=== PATIENT | male | born 1950 | race Caucasian/White ===

== ENCOUNTER 2019-12-02 10:02 | Emergency (ER) | payer MEDICARE, OTHER, SELFPAY ==
[2019-12-02 10:10] VITALS: BMI 19.8
[2019-12-02 10:14] VITALS: BP 116/99; PULSE 102; RESP 18; O2SAT 97
[2019-12-02 11:16] LABS: Basophils % 0.2 %; Eosinophils % 0.1 %; Hematocrit 45.9 % (42.0-52.0); Hemoglobin 15.1 g/dL (11.7-16.6); Lymphocytes # 2.3 10^3/uL (0.8-4.8); Mean Corpuscular HGB Conc 32.9 g/dL (30.0-36.0); Mean Corpuscular Hemoglobin 29.9 pg (28.0-34.0); Mean Corpuscular Volume 90.9 fL (80-94); Mean Platelet Volume 8.4 fL (7.4-10.4); Monocytes # 0.7 10^3/uL (0.2-0.9); Monocytes % 7.5 %; Neutrophils # 6.37 10^3/uL (1.8-7.7); Neutrophils % 67.8 %; Nucleated Red Blood Cells % 0 %; Platelet Count 322 10^3/cmm (130-400); Red Blood Count 5.05 10^6/uL (4.1-5.3); Red Cell Distribution Width 12.5 % (12.1-15.1); White Blood Count 9.4 10^3/uL (4.0-10.0)
[2019-12-02 11:31] LABS: Alanine Aminotransferase 12 U/L (0-41); Albumin Level 3.7 g/dL (3.5-5.2); Alkaline Phosphatase 66 IU/L (40-130); Anion Gap 14.5 (5-19); Aspartate Amino Transferase 17 U/L (0-40); Blood Urea Nitrogen 25 mg/dL (8-23); Calcium 8.4 mg/dL (8.5-10.5); Carbon Dioxide 23 mmol/L (22-29); Chloride 96 mmol/L (98-107); Creatinine Clr Calc Pharmacy 72.8049; Globulin 3.4 g/dL (1.3-4.6); Glomerular Filtration Rate 84.2 mL/min (90-130); Glucose 105 mg/dL (65-115); Lipase 42 U/L (13-60); Osmolality Calculated 267 mOsm/kg (285-295); Potassium 3.5 mmol/L (3.5-5.1); Sodium 130 mmol/L (136-145); Total Bilirubin 0.9 mg/dL (0.15-1.2); Total Protein 7.1 g/dL (6.6-8.7)
[2019-12-02] MEDS: ondansetron 2 mg/ML SDV 2 mL 4 MG IVP (11:31)
[2019-12-02] MEDS: ketorolac 30 mg/mL INJ 15 MG IVP (11:31)
--- NOTE | 2019-12-02 11:31 | ED_ITS ---
HPI - Abdominal Pain General: Chief Complaint: Abdominal Pain Stated Complaint: stomach cramps/can't eat or sleep Time Seen by Provider: 12/02/19 10:53 History of Present Illness: HPI narrative: This patient is a 69-year-old male presenting today with vomiting and diarrhea. He has chronic back pain due to an injury in 2009. He had been on methadone and then switch to oxycodone. He had been going to the pain management clinic with Dr. Pendleton. He said he got kicked out because he tested dirty . He said he does not like being on pain medicine and wanted to get off of it anyway. He went to an inpatient rehab center in [facility] where he was treated with methadone during the withdrawal. He got home a week ago Sunday and had a couple of days of feeling okay. For the last 6 days however he has had anxiety, muscle spasms, abdominal pain, vomiting, diarrhea. He has not been able to sleep. He is extremely anxious right now. His primary care doctor is Dr. More and he spoke to the nurse practitioner at Dr. More's office. She recommended that he come to the ER to see if we could help manage his symptoms. He does have some other medical history including history of a PE with chronic anticoagulation. He does not want to go back on methadone or any other narcotic. He wants to get his medical marijuana card and does admit that he used a little bit of marijuana last night to try to manage his symptoms. He says it does help but only lasts about an hour and a half. MD elicited complaint: abdominal pain Onset (ago): day(s) (6) Pain Consistency: constant Location: Diffuse Severity: severe Quality: cramping Radiation: none Migration to: no migration Exacerbating factors: eating Relieving factors: nothing Context: other (Possibly withdrawing from narcotics) Associated Symptoms: Reports diarrhea and vomiting; Denies chills and fever(s) Review of Systems General: Reports: 10 or more systems reviewed and unremarkable except in HPI and below Const: Reports: change in weight (Reports a 40 pound weight loss over the past few months), fatigue, malaise and change in sleep pattern; Denies: fever(s) or chills Eyes: Denies: change in vision ENMT: Denies: odynophagia Card: Denies: chest pain or swelling of feet/ankles Resp: Denies: dyspnea, productive cough or non-productive cough GI: Reports: vomiting and diarrhea : Denies: flank pain Musc: Denies: neck pain or back pain Skin/Breast: Denies: rash Neuro: Denies: headache(s), numbness in extremities or weakness in extremities Psych: Reports: anxiety, depression and sleeping less Yaw/Lymph: Denies: easy bruising or easy bleeding Physical Exam Const: COMMON NORMALS: patient oriented x3, no limitations and alert GENERAL APPEARANCE: cooperative, in distress, anxious and other (Tremulous) NUTRITIONAL APPEARANCE: thin HENMT: HEAD & SCALP: normal to inspection FACE & SINUS: normal facial exam Eye: GENERAL EYE: appearance normal, both eyes and all related structures Neck/C-Spine: COMMON NORMALS: supple, no meningeal signs and no JVD Chest: COMMONS NORMALS: normal inspection of the chest Resp: COMMON NORMALS: normal respiratory effort, No use of accessory muscles and clear to auscultation bilaterally AUSCULTATION: clear to auscultation bilaterally Cardio: COMMON NORMALS: no JVD, regular rate, regular rhythm and No murmurs present (Cardio) RATE: regular rate RHYTHM: regular rhythm GI: COMMON NORMALS: Normal to inspection, nondistended, normoactive bowel sounds present and Soft to palpation INSPECTION: Yes normal to inspection AUSCULTATION: Yes normoactive bowel sounds PALPATION: Yes Soft to palpation and Yes Tenderness to palpation present (GI) (Diffusely) Back/Pelvis: COMMON NORMALS: thoracic and lumbar spine normal to inspection Extremity: COMMON NORMALS: normal to inspection Neuro: COMMON NORMALS: patient oriented x3, moves all extremities, no focal motor deficits and no sensory deficits noted SENSORIUM/ORIENTATION: Yes alert MENINGEAL SIGNS: Yes no meningeal signs Psych: COMMON NORMALS: mental status grossly normal, Normal thought process present, cooperative, normal affect and speech normal ACTIVITY/MOTOR BEHAVIOR: Yes restless SPEECH: Yes normal speech MOOD & AFFECT: Yes anxiou s THOUGHT PROCESS: Normal thought process present Skin: COMMON NORMALS: no rashes or lesions noted and turgor normal GENERAL SKIN EXAM: no rashes or lesions noted and turgor normal Course ED course: The patient improved quite nicely in the ED with some symptomatic treatment. We discussed a plan for managing his symptoms and outpatient. Raegan put him on gabapentin which hopefully will help with his withdrawal symptoms and possibly even was chronic back pain. I also gave him some hydroxyzine for anxiety and sleep. He Danish has methocarbamol and prochlorperazine at home. His INR was slightly elevated and he understands that he needs to have that rechecked within about a week. I am not going to change his dose at this time. Vital Signs: Vital signs: Vital Signs Pulse Rate 78 12/02/19 13:54 Respiratory Rate 19 H 12/02/19 13:54 Blood Pressure 146/79 12/02/19 13:54 Pulse Oximetry 94 12/02/19 13:54 MDM - Abdominal Pain Lab Data: Labs: Lab Results 12/02/19 12/02/19 12/02/19 Range/Units 11:08 11:08 11:08 WBC 9.4 (4.0-10.0) 10^3/ uL RBC 5.05 (4.1-5.3) 10^6/u L Hgb 15.1 (11.7-16.6) g/dL Hct 45.9 (42.0-52.0) % MCV 90.9 (80-94) fL MCH 29.9 (28.0-34.0) pg MCHC 32.9 (30.0-36.0) g/dL RDW 12.5 (12.1-15.1) % Plt Count 322 (130-400) 10^3/c mm MPV 8.4 (7.4-10.4) fL Neut % (Auto) 67.8 % Lymph % (Auto) 24.0 % Elmore % (Auto) 7.5 % Eos % (Auto) 0.1 % Baso % (Auto) 0.2 % Neut # (Auto) 6.37 (1.8-7.7) 10^3/u L Lymph # (Auto) 2.3 (0.8-4.8) 10^3/u L Elmore # (Auto) 0.7 (0.2-0.9) 10^3/u L Eos # (Auto) 0.0 (0.0-0.8) 10^3/u L Baso # (Auto) 0.0 (0.0-0.1) 10^3/u L Nucleated RBC % (a uto) 0 % Nucleated RBCs # 0.0 /100WBC PT 34.50 H (12.1-14.9) SECO NDS INR 3.26 H (0.8-1.2) Sodium 130 L (136-145) mmol/L Potassium 3.5 (3.5-5.1) mmol/L Chloride 96 L (98-107) mmol/L Carbon Dioxide 23 (22-29) mmol/L Anion Gap 14.5 (5-19) BUN 25 H (8-23) mg/dL Creatinine 0.9 (0.7-1.2) mg/dL GFR Calculation 84.2 L (90-130) mL/min Glucose 105 (65-115) mg/dL Calculated Osmolal ity 267 L (285-295) mOsm/k g Calcium 8.4 L (8.5-10.5) mg/dL Total Bilirubin 0.9 (0.15-1.2) mg/dL AST 17 (0-40) U/L ALT 12 (0-41) U/L Alkaline Phosphata se 66 (40-130) IU/L Total Protein 7.1 (6.6-8.7) g/dL Albumin 3.7 (3.5-5.2) g/dL Globulin 3.4 (1.3-4.6) g/dL Lipase 42 (13-60) U/L Urine Color (Yellow) Urine Appearance (CLEAR) Urine pH (5-7) Ur Specific Gravit y (1.005-1.030) Urine Protein (Negative) Urine Glucose (UA) (Normal) Urine Ketones (Negative) Urine Blood (Negative) Urine Nitrate (Negative) Urine Bilirubin (NEGATIVE) Urine Urobilinogen (Negative) mg/dL Ur Leukocyte Vicki ase (Negative) 12/02/19 Range/Units 12:02 WBC (4.0-10.0) 10^3/ uL RBC (4.1-5.3) 10^6/u L Hgb (11.7-16.6) g/dL Hct (42.0-52.0) % MCV (80-94) fL MCH (28.0-34.0) pg MCHC (30.0-36.0) g/dL RDW (12.1-15.1) % Plt Count (130-400) 10^3/c mm MPV (7.4-10.4) fL Neut % (Auto) % Lymph % (Auto) % Elmore % (Auto) % Eos % (Auto) % Baso % (Auto) % Neut # (Auto) (1.8-7.7) 10^3/u L Lymph # (Auto) (0.8-4.8) 10^3/u L Elmore # (Auto) (0.2-0.9) 10^3/u L Eos # (Auto) (0.0-0.8) 10^3/u L Baso # (Auto) (0.0-0.1) 10^3/u L Nucleated RBC % (a uto) % Nucleated RBCs # /100WBC PT (12.1-14.9) SECO NDS INR (0.8-1.2) Sodium (136-145) mmol/L Potassium (3.5-5.1) mmol/L Chloride (98-107) mmol/L Carbon Dioxide (22-29) mmol/L Anion Gap (5-19) BUN (8-23) mg/dL Creatinine (0.7-1.2) mg/dL GFR Calculation (90-130) mL/min Glucose (65-115) mg/dL Calculated Osmolal ity (285-295) mOsm/k g Calcium (8.5-10.5) mg/dL Total Bilirubin (0.15-1.2) mg/dL AST (0-40) U/L ALT (0-41) U/L Alkaline Phosphata se (40-130) IU/L Total Protein (6.6-8.7) g/dL Albumin (3.5-5.2) g/dL Globulin (1.3-4.6) g/dL Lipase (13-60) U/L Urine Color Yellow (Yellow) Urine Appearance Clear (CLEAR) Urine pH 5 (5-7) Ur Specific Gravit y 1.020 (1.005-1.030) Urine Protein Neg (Negative) Urine Glucose (UA) Norm (Normal) Urine Ketones 2+ H (Negative) Urine Blood Neg (Negative) Urine Nitrate Negative (Negative) Urine Bilirubin Neg (NEGATIVE) Urine Urobilinogen Neg (Negative) mg/dL Ur Leukocyte Vicki ase Negative (Negative) Discharge Plan Discharge Patient Disposition: Home Clinical Impression: Opiate withdrawal Condition: Stable Prescriptions: New gabapentin 300 mg capsule 300 mg PO Q8H Qty: 90 RF: 0 hydroxyzine HCl 50 mg tablet 50 mg PO Q8H PRN (Reason: nausea and vomiting) Qty: 60 RF: 0 No Action cetirizine 10 mg tablet 10 mg PO DAILY RF: 0 alendronate 70 mg tablet 70 mg PO Q7D RF: 0 prochlorperazine maleate 10 mg tablet 10 mg PO TID PRN (Reason: Nausea) RF: 0 simvastatin 40 mg tablet 40 mg PO BEDTIME RF: 0 methocarbamol 750 mg tablet 750 mg PO TID PRN (Reason: Pain) RF: 0 warfarin 5 mg tablet See Rx Instructions .ROUTE .COMPLEX RF: 0 mirtazapine 45 mg tablet 45 mg PO BEDTIME RF: 0 metoprolol succinate 25 mg tablet extended release 24 hr 25 mg PO DAILY RF: 0 Discharge Orders: Discharge Order (Routine); Ordered 12/02/19 Ordered By: Christina Rosado Referrals: Paul More MD [Primary Care Provider] - Discharge Diet: Usual diet Discharge Activity: Resume usual activity Patient Instructions: Opioid Withdrawal (ED) Activity Restrictions/Additional Instructions: Take the gabapentin three times daily. This should help with withdrawal symptoms as well as your chronic back pain. You can also take the hydroxyzine to help with the withdrawal symptoms as well as anxiety and insomnia. Continue your other medications as well. Return to the ED if worsening, not able to keep down fluids, or other concerns. Follow up with your primary care provider for further management. Have your INR rechecked in about a week as it was just a little high today. Symptoms should continue to improve over the next few days. Discharge Date/Time: 12/02/19 14:22 Coding Level of Care Code ED Hr Operations Advisor for Nabil Sheriff Exam Comprehensive
[2019-12-02] MEDS: sodium chloride 0.9% 1,000 ML 999 ML IV (11:32)
[2019-12-02 11:58] LABS: INR 3.26 (0.8-1.2)
[2019-12-02 13:07] LABS: Add Urine Microscopic? NO
[2019-12-02 13:16] LABS: Bilirubin Urine Neg (NEGATIVE); Blood Urine Neg (Negative); Glucose Urine UA Norm (Normal); Ketones Urine 2+ (Negative); Leukocyte Esterase Urine Negative (Negative); Nitrate Urine Negative (Negative); Protein Urine Neg (Negative); Urine Appearance Clear (CLEAR); Urine Color Yellow (Yellow); Urobilinogen Urine Neg (Negative); pH Urine 5 (5-7)
[2019-12-02 13:54] VITALS: BP 146/79; PULSE 78; RESP 19; O2SAT 94
== END 2019-12-02 14:22 | disposition home or self-care (01) ==
PROVIDERS: Emergency Provider Emergency Medicine; PCP Family Medicine
DX: F11.23 Opioid dependence with withdrawal (principal); Z79.01 Long term (current) use of anticoagulants
CPT/HCPCS: 12345; 36415; 80053; 81003; 83690; 85025; 85610; 96361; 96374; 96375; 99283; J1885; J2405; J7030

== ENCOUNTER → 2021-02-08 09:40 | Outpatient (BNVA) | payer MEDICARE, OTHER, SELFPAY | PROVIDERS: PCP Family Medicine; Visit Provider Urology | DX: N40.1 Benign prostatic hyperplasia with lower urinary tract symptoms (principal); N30.20 Other chronic cystitis without hematuria; N32.89 Other specified disorders of bladder; R39.198 Other difficulties with micturition; N30.80 Other cystitis without hematuria; R97.20 Elevated prostate specific antigen [PSA] | CPT/HCPCS: 81003 ==

== ENCOUNTER → 2021-04-28 08:59 | Outpatient (BNVA) | payer MEDICARE, OTHER, SELFPAY | PROVIDERS: PCP Family Medicine; Visit Provider Urology | DX: N30.80 Other cystitis without hematuria (principal) | CPT/HCPCS: 81003 ==

== ENCOUNTER → 2021-05-09 10:51 | Outpatient (BNVA) | payer MEDICARE, OTHER, SELFPAY | PROVIDERS: PCP Family Medicine; Visit Provider Surgery | DX: Z20.822 Contact with and (suspected) exposure to COVID-19 (principal); K40.90 Unilateral inguinal hernia, without obstruction or gangrene, not specified as recurrent | CPT/HCPCS: 87635 ==

== ENCOUNTER 2021-05-16 08:29 | Day surgery (SDC) | payer MEDICARE, OTHER, SELFPAY ==
[2021-05-13 14:47] VITALS: BMI 22.0
[2021-05-16] VITALS (13 sets, daily range): BP systolic 120–167; BP diastolic 66–102; PULSE 70–126; RESP 16–18; TEMP 36.2–36.7; O2SAT 93–98
--- NOTE | 2021-05-16 08:43 | W.PM.OPSFHP ---
Same Day Surgery H&P Indication for Procedure/HPI DATE OF PROCEDURE: May 16, 2021 CHIEF COMPLAINT/INDICATIONFOR SURGICAL PROCEDURE: left inguinal hernia PREOP DIAGNOSIS: inguinal hernia PLANNED PROCEDURE: Operation Date: 05/16/21 09:50 Proposed Procedures p Laparoscopic poss open Left Inguinal Hernia Repair [id number]/[id number](Left) - Dexter Cummings MD Medications/Allergies* Home Medications Medication Instructions Recorded Confirmed Type cetirizine [Zyrtec] 10 mg PO DAILY 12/02/19 05/13/21 History mirtazapine 45 mg PO BEDTIME 12/02/19 05/13/21 History simvastatin 40 mg PO BEDTIME 12/02/19 05/13/21 History warfarin See Rx Instructions .ROUTE .COMPLEX 12/02/19 05/13/21 History THC CBD DROPS PO 04/28/21 05/09/21 History Allergies/Adverse Reactions Allergy/AdvReac Type Severity Reaction Status Date / Time Sulfa (Sulfonamide Allergy ADR-Vomitin Verified 05/16/21 08:43 Antibiotics) g Pertinent History/Comorbid Conditions* Medical History (Updated 05/09/21 @ 10:43 by Dexter Cummings MD) COPD (chronic obstructive pulmonary disease) Cystitis cystica Pulmonary embolism Surgical History (Updated 02/08/21 @ 05:21 by Jb Rinaldi MD) History of neck surgery History of surgery on wrist Family History (Updated 02/08/21 @ 09:51 by KI Aldridge) Father, AT AGE 85 LUNG CANCER Mother, AT AGE 82 BREAST CANCER Cancer Father Mother Social History Alcohol intake: never Marital status: Current occupational status: retired Pertinent Exam Findings alert, oriented x 3, regular rate & rhythm and operative site marked Recommendations Surgery/Procedure today Coding Level of Care Code Acute Passenger Service Representative for Chg Jaziel
--- NOTE | 2021-05-16 08:54 | ECG_ITS ---
[facility] Test Date: 2021-05-16 Pat Name: Dudley Daniel Department: Room: Gender: Male Nuclear Monitoring Technician: : 1950 Requested By: Dexter Cummings Order Number: [id number] Bisi MD: KORI ESCOTO Measurements Intervals [place] Rate: 68 P: 2 ID: 116 QRS: 42 QRSD: 104 T: 64 QT: 421 QTc: 448 Interpretive Statements SINUS RHYTHM WITH SHORT ID INTERVAL Compared to ECG 05/04/2014 07:44:40 Short ID interval now present Electronically Signed On 05-16-2021 20:56:09 TELEMEDICINE PHYSICIAN by KORI ESCOTO [id number]
[2021-05-16] MEDS: sodium chloride 0.9% 1,000 ML 30 ML IV (09:00)
--- NOTE | 2021-05-16 09:34 | ANES.PREANE2 ---
Pre-Anesthetic Assessment Pre-Anesthetic Assessment: Height/Weight: Height 1.73 m Weight 65.771 kg Temp Pulse Resp BP Pulse Ox 98.1 F 89 16 155/102 97 05/16/21 08:47 05/16/21 08:47 05/16/21 08:47 05/16/21 08:47 05/16/21 08:47 Preop Diagnosis: inguinal hernia Proposed Procedure: Operation Date: 05/16/21 09:50 Proposed Procedures p Laparoscopic poss open Left Inguinal Hernia Repair [id number]/[id number](Left) - Dexter Cummings MD Was Beta Danny taken within 24 hours: N/A Was Clonidine taken within 24 hours: N/A Last intake: Intake Last Liquid Date 05/15/21 Last Liquid Time 00:00 Last Solid Date 05/15/21 Last Solid Time 19:30 Social: Social History: No alcohol and No tobacco Exam: Pre-Anes Outpt Exam: alert, oriented x 3 and regular rate & rhythm Additional Exam Findings (including area of procedure): +bbs, distant Airway: Submandibular: WNL Cervical ROM: WNL MP: 2 Dentition: False Pulmonary: Pulmonary: COPD (home 2L) CV/HEM: CV/HEM: DVT (PE, anticoag) and HTN Metabolic: Metabolic: Hyperlipidemia Anesthetic Plan: ASA status: 3 Anesthesia: General Risk of > 500 ml blood loss (7ml/kg in children): No Medications/Allergies Current Medications: Current Medications Generic Name Dose Route Start Last Admin Trade Name Freq PRN Reason Stop Dose Admin Sodium Chloride 1,000 mls @ 30 ml s/hr 05/16/21 08:30 05/16/21 09:00 Sodium Chloride 0.9% IV 05/17/21 08:29 30 mls/hr .Q24H JENAE Administration PFSH Anesthesia PFSH: Medical History (Updated 05/09/21 @ 10:43 by Dexter Cummings MD) COPD (chronic obstructive pulmonary disease) Cystitis cystica Pulmonary embolism Surgical History History of neck surgery History of surgery on wrist Family History Father , AT AGE 85 LUNG CANCER Cancer Mother , AT AGE 82 BREAST CANCER Cancer Social History Alcohol intake: never Marital status: Current occupational status: retired Data Anesthesia Cardiac Studies: No Data to Display
--- NOTE | 2021-05-16 10:27 | PM.OP ---
Operative Report Date of procedure: May 16, 2021 Pre-op Diagnosis: Left incarcerated inguinal hernia Post-op Diagnosis: Left incarcerated femoral hernia Procedure Done: Laparoscopic total extraperitoneal repair of incarcerated left femoral hernia with Surgimax 3D mesh measuring 10 x 16 cm Pathology: none sent Surgeon: Dexter Cummings Anesthesia: General Condition: stable Disposition: PACU Procedure: The patient was taken to the operating room. After IV antibiotic was administered, the abdomen was prepped and draped in a sterile manner. Using a 15 blade, a 1.0 cm transverse incision was made infraumbilically on the left side. Subcutaneous tissue was divided using electrocautery and the anterior rectus sheath divided using an 11 blade. The rectus muscle was retracted laterally and the extraperitoneal space identified. A 11 mm port was placed and 12 mm of pneumoperitoneum was created. A 10 mm 30? scope was introduced and the retrorectus space was opened using the camera up to the pubic symphysis and 5 mm ports were placed in the midline, one 2-fingerbreadths above the pubic symphysis and the other midway between these two ports under direct visualization. Blunt dissection was carried out to open up the tissue in the midline and to the pubic symphysis, which was identified. The dissection was then carried laterally where the Santosh's ligament was identified. There was no direct or obturator hernia noted but there was a femoral hernia which was incarcerated and was reduced by applying gentle traction. The inferior epigastric artery was identified and dissection was carried posterior to it and laterally, the space was opened up to the level of the umbilicus superior to the anterior superior iliac spine. I then proceeded to dissect out the spermatic cord and the edge of the peritoneum was peeled away up to the iliac vessels. 16 x 10cm Surgimax 3D mesh was rolled and introduced through the 10 mm port and rolled laterally and apposed well against the abdominal wall to cover the myopectineal orifice completely. 10 Cc of 0.5% Marcaine was infiltrated into the preperitoneal space. The extraperitoneal space was desufflated under direct visualization to ensure no slippage of hernial sac under the mesh. All ports were removed, the anterior rectus fascia at the infraumbilical port closed using figure of eight 0 Vicryl sutures, subcutaneous tissue approximated using 3-0 Vicryl sutures and skin at all three port sites were closed using running subcuticular 4-0 Monocryl sutures and Dermabond. 10 mL of 0.5% Marcaine was infiltrated at the port sites. The patient was extubated and transferred to recovery room in stable condition.
[2021-05-16] MEDS: fentaNYL 50 mcg/mL INJ 2mL IVP ×2 (10:48→11:10)
[2021-05-16] MEDS: HYDROcodone-acetaminophen 5-325 mg Tablet 1 TAB PO (11:35)
--- NOTE | 2021-05-16 14:17 | ANE.PACU2 ---
Inpatient post-anesthesia follow up: Airway intact: Yes Vital signs: Temperature 98 F Pulse Rate 77 Respiratory Rate 17 Blood Pressure 135/74 Pulse Oximetry 96 Oxygen Delivery Me thod Nasal Cannula Oxygen Flow Rate 3 Fraction of Inspir ed Oxygen 3.0 Hydration adequate: Yes Nausea and vomiting: No Pain level: 2 Mental status: Baseline
== END 2021-05-16 12:30 | disposition home or self-care (01) ==
PROVIDERS: PCP Family Medicine; Visit Provider Surgery
PROC: (CPT 49650; principal; 2021-05-16 09:40)
DX: K40.30 Unilateral inguinal hernia, with obstruction, without gangrene, not specified as recurrent (principal); J44.9 Chronic obstructive pulmonary disease, unspecified; Z86.711 Personal history of pulmonary embolism; Z99.81 Dependence on supplemental oxygen; Z86.718 Personal history of other venous thrombosis and embolism; E78.5 Hyperlipidemia, unspecified; Z79.01 Long term (current) use of anticoagulants; I10 Essential (primary) hypertension
CPT/HCPCS: 49650; 93005; 96374; C1781; J0690; J1100; J2405; J2704; J2710; J3010; J3490; J7030

== ENCOUNTER → 2021-07-22 09:13 | Outpatient (BNVA) | payer MEDICARE, OTHER, SELFPAY | PROVIDERS: PCP Family Medicine; Visit Provider Urology | DX: N30.80 Other cystitis without hematuria (principal); N40.1 Benign prostatic hyperplasia with lower urinary tract symptoms | CPT/HCPCS: 81003 ==

== ENCOUNTER 2022-02-05 08:27 | Inpatient (IN) | payer MEDICARE, OTHER, SELFPAY ==
[2022-02-05] VITALS (12 sets, daily range): BP systolic 136–188; BP diastolic 70–88; PULSE 67–119; RESP 17–24; TEMP 36.6–36.8; O2SAT 93–97; BMI 20.9
[2022-02-05] MEDS: morphine 4 mg/mL SDV 1 mL IVP ×4 (03:21→21:20)
[2022-02-05] MEDS: sodium chlor 0.45% +KCl 20 mEq 20 MEQ/1,000 ML BAG 100 MEQ IV (03:23)
--- NOTE | 2022-02-05 05:47 | XRR_ITS ---
PROCEDURE INFORMATION: Exam: XR Abdomen Exam date and time: 02/05/2022 9:58 AM Age: 72 years old Clinical indication: Abdominal pain; Generalized; Additional info: Followup ureteral stone TECHNIQUE: Imaging protocol: Radiologic exam of the abdomen. Views: Frontal supine view of the abdomen. 1 View. COMPARISON: CT abdomen pelvis w con* [id number] 02/04/2022 9:07 PM FINDINGS: Gastrointestinal tract: Normal. No bowel dilation. Organs: Contrast is present in the urinary bladder from a recent CT scan of the abdomen. Two adjacent calculi that each measure about 5 mm in diameter project at the left ureterovesical junction. Bones/joints: Unremarkable. XR/XR KUB [id number] IMPRESSION: Two adjacent 5 mm calculi projects at the left ureterovesical junction.
--- NOTE | 2022-02-05 05:50 | P.HP_ITS ---
Providers/Chief Complaint Admitting Physician: Jb Rinaldi MD Primary Care Provider: Emiliano Arriaga Chief Complaint: Ureteral Calculus with refractory pain History of Present Illness Dudley Danile is a 72 year old male known to me for history of BPH/ mildly elevated PSA/and UTI. I last saw him in and had scheduled a followup in 6 months. Presented to [facility] ED with about 12 hours of acute onset of LEFT renal colicky severe and at times unremitting pain and diagnosed with approximately 1.5 cm left distal ureteral stone. No UTI. Trouble controlling pain. No change in voiding symptoms although he does have chronic BPH type complaints. Transfer requested and was direct admitted. No prior stones of consequence although he did have a history of stone noted on prior CT scans in the left kidney. No prior treatment for stones Symptoms: Workup: * UA no evidence of infection * CT: >1 cm left distal ureteral stone with obstructive changes. No additional renal calculi. Bladder is slightly distended. I did review old CT scans that showed as far back as 2013 a stone in the left lower pole. Last CT scan prior to current was in early 2020 and the stone was smaller at that time per my review * Lab: Creatinine 0.7, electrolytes normal, normal LFTs, white count 11.1 Other clinical issues affecting admission diagnosis: * Chronic warfarin use: 10 mg on , 7 mg every other day. Last dose 02/03/2022. * COPD with chronic oxygen usage. In the past has used inhaler therapy but he denies taking any recently. * Chronic bladder or obstructive symptoms (decreased force of stream, urgency and frequency). He had been previously prescribed tamsulosin by primary care but for some reason the medication was not filled. Review of Systems Const: Denies: fever(s) or chills Eyes: Denies: change in vision or eye discharge ENMT: Denies: odynophagia or hoarseness Card: Denies: chest pain or palpitations Resp: Reports: dyspnea (Chronic without significant change); Denies: productive cough or stridor GI: Reports: abdominal pain, nausea and vomiting; Denies: melena : Reports: flank pain, difficulty urinating and change in urine stream; Denies: dysuria, genital pain or testicular pain Musc: Denies: extremity swelling, joint redness or joint warmth Skin/Breast: Denies: rash or sores Neuro: Denies: behavioral changes, Slurred speech present, difficulty communicating thoughts or seizure-like activity Psych: Reports: depression (History of but not problematic recently) Yaw/Lymph: Reports: easy bruising and easy bleeding; Denies: enlarged lymph nodes All/Imm: Denies: urticaria or acute wheezing Medications/Allergies Home Medications Medication Instructions Recorded Confirmed Last Taken Type cetirizine 10 mg tablet (Zyrtec) 10 mg PO DAILY 12/02/19 02/05/22 02/04/22 07:00 History mirtazapine 45 mg tablet 45 mg PO BEDTIME 12/02/19 02/05/22 02/03/22 21:00 History simvastatin 40 mg tablet 40 mg PO BEDTIME 12/02/19 02/05/22 02/03/22 14:00 History warfarin 5 mg tablet See Rx Instructions .Route .COMPLEX 12/02/19 02/05/22 02/03/22 14:00 History THC CBD DROPS 1 tab PO DAILY 04/28/21 02/05/22 02/02/22 History ciprofloxacin HCl 500 mg tablet 500 mg PO BID #60 tabs 04/28/21 02/05/22 11/05/21 Rx ondansetron HCl 4 mg tablet 4 mg PO Q6H PRN nausea and 05/16/21 02/05/22 11/04/21 Rx (Zofran) vomiting #20 tabs Allergies Allergy/AdvReac Type Severity Reaction Status Date / Time Sulfa (Sulfonamide Allergy ADR-Vomitin Verified 07/22/21 09:15 Antibiotics) g PFSH Acute PFSH: Medical History (Updated 02/05/22 @ 08:44 by Jb Rinaldi MD) Bladder wall thickening Chronic anticoagulation COPD (chronic obstructive pulmonary disease) Cystitis cystica Elevated PSA History of recurrent UTI (urinary tract infection) Left ureteral calculus Oxygen dependent Pulmonary embolism Surgical History History of femoral hernia repair (05/16/21) Laparoscopic History of neck surgery History of surgery on wrist Family History Father , AT AGE 85 LUNG CANCER Cancer Mother , AT AGE 82 BREAST CANCER Cancer Social History Smoking and tobacco status: former smoker Alcohol intake: never Marital status: Current occupational status: retired Vitals/I&O/Wt Last Vital Signs Temp 97.8 F 02/05/22 04:39 Pulse 80 02/05/22 04:39 Resp 24 H 02/05/22 04:39 BP 136/70 02/05/22 04:39 Pulse Ox 93 02/05/22 04:39 O2 Del Method 02/05/22 04:39 O2 Flow Rate 2 02/05/22 04:39 02/04/22 02/04/22 02/05/22 14:59 22:59 06:59 Output Total 300 / 300 Balance -300 / -300 Weight last 48 hrs Weight 137 lb 6.4 oz Physical Exam Const: COMMON NORMALS: no acute distress, alert and well nourished GENERAL APPEARANCE: well kempt and well developed ORIENTATION/CONSCIOUSNESS: not confused HENMT: COMMON NORMALS: normocephalic HEAD & SCALP: normal to inspection and normocephalic Eye: COMMON NORMALS: conjunctivae normal and no scleral icterus CONJUNCTIVA: Yes conjunctivae normal Neck/C-Spine: GENERAL: Yes normal visual inspection Lymph: LYMPHATIC: No lymphedema and No lymphadenopathy Chest: OTHER: Normal movements Resp: COMMON NORMALS: normal respiratory effort EFFORT & INSPECTION: Yes able to speak in complete sentences, No labored and No Actively coughing AUSCULTATION: no wheezes OTHER: O2 per nasal cannula. GI: OTHER: Tenderness in the left upper quadrant left CVA area. No palpable masses. Bladder not distended No surgical abdomen No recurrent hernia : COMMON NORMALS: No no CVA tenderness, Yes normal external exam, Yes scrotum normal, Yes no scrotal swelling and Yes No hernias present OTHER: Left testicular atrophy. Back/Pelvis: GENERAL BACK: Yes CVA tenderness CVA tenderness: left Extremity: COMMON NORMALS: no clubbing, cyanosis or edema Neuro: COMMON NORMALS: no focal motor deficits SENSORIUM/ORIENTATION: Yes alert Psych: COMMON NORMALS: mental status grossly normal APPEARANCE: Yes grossly normal and Yes well kempt ATTITUDE: Yes calm and Yes engaged Skin: COMMON NORMALS: no rashes or lesions noted and no jaundice GENERAL SKIN EXAM: no rashes or lesions noted Data Other Labs: I reviewed his labs from [facility]. See HPI CT Abd/Pel: My impression: Left hydronephrosis secondary to 1.5 cm left distal ureteral stone with obstructive changes. No additional stones Radiologist's impression: I agree with their impression. A&P Assessment and plan (1) Left ureteral calculus: 1.5 cm. Obstructing. No evidence of infection. (2) Left flank pain: Unlikely to pass. Due to large obstructing left distal ureteral stone. Symptoms were refractory and difficult enough to control to warrant direct admission from outside institution (3) BPH loc w urin obs/LUTS: Chronic. Previously prescribed tamsulosin but some difficulty getting it filled. Will start. We will also add FINASTERIDE for long-term (4) Elevated PSA: Overall considered low risk given his other comorbidities (5) Slow urinary stream: BPH/obstruction. We will start TAMSULOSIN/FINASTERIDE (6) History of recurrent UTI (urinary tract infection): No evidence currently. He does have a history of cystitis cystica and for that reason will be covered with antibiotics (7) History of pulmonary embolism: No current symptoms. Will use SCDs. Still has some of the benefit of warfarin but not full value. We will restart immediately postop. (8) Chronic anticoagulation: Holding warfarin. Reviewed potential risk of increased bleeding because of recent dosing. Should be minimized based on holding until tomorrow for surgical intervention (9) Oxygen dependent: Respiratory to assess and treat Plan 1. Plan for surgical intervention tomorrow. I reviewed that the stone is unlikely to pass based on its size. He is having refractory symptoms. He does have somewhat increased risk based on a previous history of recurrent UTIs and cystitis cystica although no evidence of that now. I will cover him with antibiotics because of the risk of obstructive pyelonephritis is much higher with him given his prior chronic cystitis cystica. Benefits and risk of the procedure fully discussed. Informed consent was obtained. We did review the possibility of difficulty accessing the stone with the scope which would necessi mary stent placement for passive dilation and repeat attempt at a later date. Also reviewed that in some rare occasions it is impossible to even bypassed the stone with a wire and therefore inability to pass the stent; consultation with interventional radiology at tertiary institution would be then required for antegrade attempted stent placement/percutaneous nephrostomy. 2. Respiratory to assess and treat. 3. Continue holding his WARFARIN 4. Add TAMSULOSIN for chronic BPH type symptoms 5. Can resume normal diet today with clear liquids after midnight and n.p.o. after 4 AM tomorrow. 6. Liberalize pain medication is he still having intermittent severe pain related to the stone. 7. Placed inpatient status because of the over 2 midnight hospital stay expectation. Attestations Medical Necessity Statement*: Severe renal colic not well controlled in ED with parenteral pain meds. Coding Level of Care Code Acute Machinist Apprentice Wood for Fedeg Fwd History Comprehensive Exam Comprehensive Medical Decision Making High Complexity Diagnoses Left ureteral calculus N20.1 Left flank pain R10.9 BPH loc w urin obs/LUTS N40.1 Elevated PSA R97.20 Slow urinary stream R39.198 History of recurrent UTI (urinary tract infection) Z87.440 History of pulmonary embolism Z86.711 Chronic anticoagulation Z79.01 Oxygen dependent Z99.81
[2022-02-05] MEDS: ciprofloxacin 500 mg Tablet PO ×2 (09:10→21:21)
[2022-02-05] MEDS: finasteride 5 mg Tablet PO (09:10)
[2022-02-05] MEDS: tamsulosin 0.4 mg Capsule PO (09:10)
[2022-02-05] MEDS: cetirizine 10 mg Tablet PO (09:19)
[2022-02-05] MEDS: ketorolac 30 mg/mL INJ 15 MG IVP ×2 (09:26→23:11)
[2022-02-05] MEDS: ondansetron 2 mg/ML SDV 2 mL 4 MG IVP ×2 (10:31→19:24)
[2022-02-05] MEDS: pneumococcal (23 valent) SDV 0.5 mL IM (11:06)
[2022-02-05] MEDS: oxyCODONE-APAP 5-325 mg Tablet 1 TAB PO ×2 (15:53→21:56)
[2022-02-05] MEDS: sodium chlor 0.45% +KCl 20 mEq 20 MEQ/1,000 ML BAG 50 MEQ IV (15:54)
[2022-02-06] VITALS (24 sets, daily range): BP systolic 99–164; BP diastolic 63–85; PULSE 91–115; RESP 14–22; TEMP 36.3–37; O2SAT 92–98
--- NOTE | 2022-02-06 | SCC_ITS ---
Procedure done: 1. Cystoscopy, LEFT: Retrograde, ureteroscopy, laser, stent 2. Intraoperative fluoroscopy with interpretation exclusive of radiology. 47 seconds of fluoroscopic guidance, for a cumulative dose of 5.8 mGy, was provided to Dr. Rinaldi by the radiology department. C-arm images of the abdomen were saved for the patient's permanent record. [facility]
[2022-02-06] MEDS: morphine 4 mg/mL SDV 1 mL IVP ×4 (00:55→20:06)
[2022-02-06] MEDS: oxyCODONE-APAP 5-325 mg Tablet 1 TAB PO ×4 (03:13→23:26)
[2022-02-06] MEDS: ketorolac 30 mg/mL INJ 15 MG IVP ×2 (06:07→18:03)
[2022-02-06] MEDS: ciprofloxacin 500 mg Tablet PO ×2 (08:56→20:07)
[2022-02-06] MEDS: finasteride 5 mg Tablet PO (08:56)
[2022-02-06] MEDS: cetirizine 10 mg Tablet PO (08:57)
[2022-02-06] MEDS: tamsulosin 0.4 mg Capsule PO (08:57)
--- NOTE | 2022-02-06 10:35 | PM.PN ---
Subjective Subjective: Urology follow-up: Hospital day #2. No stone passage. Still having a lot of renal colicky type symptoms. No evidence of infectious concerns. Denies chest pains. Nothing beyond baseline for his respiratory symptoms Reviewed and consider the above information for this visit options again which would include further conservative management versus proceeding with intervention and he wants to do the latter. Endoscopic laser lithotripsy 1 time available in the OR Vitals/I&O/Wt Last Vital Signs Temp 97.5 F L 02/06/22 10:26 Pulse 109 H 02/06/22 10:26 Resp 16 02/06/22 10:26 BP 99/78 02/06/22 10:26 Pulse Ox 97 02/06/22 10:26 O2 Del Method 02/06/22 10:26 O2 Flow Rate 2 02/06/22 10:26 02/05/22 02/06/22 02/06/22 22:59 06:59 14:59 Intake Total 360 / 2110 Output Total 300 / 300 100 / 400 Balance 60 / 1810 -100 / 1710 Weight last 48 hrs Weight 137 lb 6.4 oz Physical Exam Const: COMMON NORMALS: no acute distress, alert and well nourished GENERAL APPEARANCE: well kempt and well developed ORIENTATION/CONSCIOUSNESS: not confused Resp: COMMON NORMALS: normal respiratory effort EFFORT & INSPECTION: Yes able to speak in complete sentences, No labored and No Actively coughing OTHER: O2 per nasal cannula. GI: OTHER: Left abdominal tenderness Neuro: SENSORIUM/ORIENTATION: Yes alert Psych: COMMON NORMALS: mental status grossly normal APPEARANCE: Yes grossly normal and Yes well kempt ATTITUDE: Yes calm and Yes engaged A&P Assessment and plan (1) Left ureteral calculus: 1. Newly diagnosed stone, 1.5 cm. Obstructing. No evidence of infection. 2. To the operating room today when time available (2) Left flank pain: Unlikely to pass. Due to large obstructing left distal ureteral stone. Symptoms were refractory and difficult enough to control to warrant direct admission from outside institution (3) BPH loc w urin obs/LUTS: Chronic. Previously prescribed tamsulosin but some difficulty getting it filled. Will start. We will also add FINASTERIDE for long-term (4) Elevated PSA: Overall considered low risk given his other comorbidities (5) Slow urinary stream: BPH/obstruction. We will start TAMSULOSIN/FINASTERIDE (6) History of recurrent UTI (urinary tract infection): No evidence currently. He does have a history of cystitis cystica and for that reason will be covered with antibiotics (7) History of pulmonary embolism: No current symptoms. Will use SCDs. Still has some of the benefit of warfarin but not full value. We will restart immediately postop. (8) Chronic anticoagulation: Holding warfarin. Reviewed potential risk of increased bleeding because of recent dosing. Should be minimized based on holding until tomorrow for surgical intervention (9) Oxygen dependent: Respiratory to assess and treat Plan OR today May discharge postop if doing well Will need to continue BPH medications Attestations Medical Necessity Statement*: To surgery today. Coding Level of Care Code Acute Administrative Services Manager for Nabil Sheriff Diagnoses Left ureteral calculus N20.1 Left flank pain R10.9 BPH loc w urin obs/LUTS N40.1 Elevated PSA R97.20 Slow urinary stream R39.198 History of recurrent UTI (urinary tract infection) Z87.440 History of pulmonary embolism Z86.711 Chronic anticoagulation Z79.01 Oxygen dependent Z99.81
[2022-02-06] MEDS: sodium chloride 0.9% 1,000 ML 30 ML IV (10:38)
--- NOTE | 2022-02-06 10:38 | P.OP_ITS ---
Operative Report Date of procedure: February 06, 2022 Pre-op diagnosis: Large, left distal ureteral stone with obstruction and refractory symptoms Post-op diagnosis: Large, left distal ureteral stone with obstruction and refractory symptoms Procedure done: 1. Cystoscopy, LEFT: Retrograde, ureteroscopy, laser, stent 2. Intraoperative fluoroscopy with interpretation exclusive of radiology. Specimens removed/disposition: Stone fragments Pathology: Stone fragments Surgeon: Gentry Estimated blood loss: Minimal Urine output: Not measured Complications: None Findings: Anesthesia: General Condition: Stable Disposition: PACU Intraoperative findings: * Stone located in the expected position. There was no severe inflammatory ureteral changes. * Stone completely fragmented with laser lithotripsy. Only Cary grit remained in the ureter. The remainder of the stone fragments were basketed or flushed * 6 Guamanian by 26 cm double-pigtail stent left indwelling at the completion of the procedure. Brief History: Mr. Daniel is a very pleasant 72-year-old white male known to me for history of BPH, mildly elevated PSA, and UTI. He was direct admitted yesterday for symptoms related to a 1.5 cm left distal ureteral stone that was causing obstruction. Stone had made its way down to the distal ureter surprisingly. Pain was refractory requiring consistent use of parenteral narcotics overnight and ultimately they decided to proceed with endoscopic laser lithotripsy of the stone if it is readily accessible with u reteroscopy. He is on WARFARIN and therefore not a candidate for ESWL but we did review that option as a delayed option. Procedure: After routine preoperative evaluation examination and obtaining of informed consent he was taken to the operating suite on 02/06/2022 where general anesthesia was administered without difficulty. Prepped and draped in usual sterile fashion in dorsolithotomy position paying careful attention to voiding pressure points. Appropriate timeout was performed, SCDs confirmed to be functioning, preoperative antibiotics administered, beta-di protocol confirmed 21 Guamanian cystoscope with 30 degree lens was introduced into the urethra meatus and advanced into the bladder under videoscopy. Bladder was systematic ally examined. Prostate was not enlarged. Bladder showed some trabeculation. An 8 Guamanian cone-tip catheter was intubated into the right ureteral orifice for right retrograde ureteropyelogram demonstrating: Filling defect in the left distal ureter consistent with a stone seen on CT scan and visualized as the calcific density in the left pelvis on lumber tailer film. Ureter proximal to that was mildly dilated. No other filling defects were seen. Flexible tip guidewire was then advanced up the left ureter bypassing the stone curling in the area of the renal pelvis. The ureter distal to the stone was dilated with a 15 Guamanian 4 cm balloon. A second guidewire was placed. The first wire was secured to the drapes as a safety wire and the second was used as a working wire. A 24 Guamanian ureteral access sheath was then advanced up the left ureter to the level of the stone over the working wire. A 7 Guamanian offset semirigid ureteroscope was then advanced over the guidewire through the ureteral access sheath and the stone was encountered. A 365 ?m thulium superpulse laser fiber was utilized to fragment the stone into very small particles and sand-like grit. Molded Goods Spot Picker samples, in fact the bulk of the stone fragments, were collected with basket and removed The sheath was backed down to the hub of the scope and the ureter was carefully inspected. No substantial fragments remained. The ureter was completely intact with no severe trauma. Scope was removed. Cystoscope was then backloaded over the guidewire and a 6 Guamanian by 26 cm double-pigtail stent without string was advanced over the guidewire through the cystoscope into appropriate position as confirmed via fluoroscopy and cystoscopy. The bladder was drained of remaining fragments and fluid. Stent was confirmed to be functioning. Procedure was completed. PLANS: 1. Transfer back to floor with possibility of discharge later today pending his recovery from anesthesia and the procedure 2. Plan on removing the stent in about a week in my office.
--- NOTE | 2022-02-06 11:54 | SC_ITS ---
WS: [id number] INTRAOPERATIVE TECHNIQUE: 4 Spot fluoroscopic images for intraoperative purposes. FLUOROSCOPY TIME: 47.1 seconds CLINICAL INFORMATION: intra-op COMPARISON: None. FINDINGS: LEFT ureterogram with deployment of LEFT double-J ureteral stent. Removal of previously described liu culus on the recent CT. SC/C-arm FL for Urology IMPRESSION: Images obtained for intraoperative purposes.
--- NOTE | 2022-02-06 11:55 | ANES.PREANE2 ---
Pre-Anesthetic Assessment Height/Weight: Height 1.73 m Weight 62.324 kg Temp Pulse Resp BP Pulse Ox O2 Del Method O2 Flow Rate 97.5 F L 109 H 16 99/78 97 2 02/06/22 10:02/06/22 10:02/06/22 10:26 02/06/22 10:26 02/06/22 10:26 02/06/22 10:02/06/22 10:26 Preop Diagnosis: Left incarcerated inguinal hernia Operation Date: 02/06/22 10:50 Proposed Procedures p Cystoscopy- left retrograde urteroscopy with laser and stent(Not Applicable) - MD chaparro Marino Retrograde Pyelogram(Left) - MD chaparro Marino Laser Lithotripsy(Left) - MD chaparro Marino Ureteral Stent Placement(Left) - Jb Rinaldi MD Familial anesthetic complications: None Was Beta Danny taken within 24 hours: N/A Was Clonidine taken within 24 hours: N/A Last intake: Intake Last Liquid Date 02/06/22 Last Liquid Time 02:00 Last Solid Date 02/04/22 Social No alcohol and No tobacco former smoker, occassional marijuana use Exam alert, oriented x 3, clear to auscultation bilaterally and regular rate & rhythm Airway Mallampati: Class II Dentition: false Pulmonary Chronic Obstructive Pulmonary Disease (3 l NC) CV/HEM Deep Vein Thrombosis and Hypertension Metabolic Hyperlipidemia Anesthetic Plan ASA status: 4 Anesthesia: General Risk of > 500 ml blood loss (7ml/kg in children): No Medications/Allergies Home Medications Medication Instructions Recorded Confirmed Last Taken Type cetirizine 10 mg tablet (Zyrtec) 10 mg PO DAILY 12/02/19 02/05/22 02/04/22 07:00 History mirtazapine 45 mg tablet 45 mg PO BEDTIME 12/02/19 02/05/22 02/03/22 21:00 History simvastatin 40 mg tablet 40 mg PO BEDTIME 12/02/19 02/05/22 02/03/22 14:00 History warfarin 5 mg tablet See Rx Instructions .Route .COMPLEX 12/02/19 02/05/22 02/03/22 14:00 History THC CBD DROPS 1 tab PO DAILY 04/28/21 02/05/22 02/02/22 History ciprofloxacin HCl 500 mg tablet 500 mg PO BID #60 tabs 04/28/21 02/05/22 11/05/21 Rx ondansetron HCl 4 mg tablet 4 mg PO Q6H PRN nausea and 05/16/21 02/05/22 11/04/21 Rx (Zofran) vomiting #20 tabs Allergies Allergy/AdvReac Type Severity Reaction Status Date / Time Sulfa (Sulfonamide Allergy ADR-Vomitin Verified 07/22/21 09:15 Antibiotics) g Current Medications Generic Name Dose Route Start Last Admin Trade Name Freq PRN Reason Stop Dose Admin Cetirizine HCl 10 mg 02/05/22 09:00 02/06/22 08:57 Cetirizine 10 Mg Tablet PO 10 mg DAILY JENAE Administration Ciprofloxacin HCl 500 mg 02/05/22 09:00 02/06/22 08:56 Ciprofloxacin 500 Mg Tablet PO 500 mg BID@0900,2100 JENAE Administration Protocol Finasteride 5 mg 02/05/22 09:00 02/06/22 08:56 Finasteride 5 Mg Tablet PO 5 mg DAILY JENAE Administration Potassium Chloride/Sodium Chloride 20 meq in 1,000 mls @ 50 mls/hr 02/05/22 02:30 02/05/22 15:54 Sodium Chlor 0.45% +Kcl 20 Meq IV 50 mls/hr .Q20H JENAE Administration Sodium Chloride 1,000 mls @ 30 mls/hr 02/06/22 10:30 02/06/22 10:38 Sodium Chloride 0.9% IV 02/07/22 10:29 30 mls/hr .Q24H JENAE Administration Ketorolac Tromethamine 15 mg 02/05/22 08:17 02/06/22 06:07 Ketorolac 30 Mg/Ml Inj IVP 02/10/22 08:16 15 mg Q6H PRN Administration MILD TO MODERATE PAIN Morphine Sulfate 1 - 2 mg 02/05/22 08:22 02/06/22 08:57 Morphine 4 Mg/Ml Sdv 1 Ml IVP 2 mg Q1H PRN Administration MODERATE TO SEVERE PAIN Ondansetron HCl 4 mg 02/05/22 02:28 02/05/22 19:24 Ondansetron 2 Mg/Ml Sdv 2 Ml IVP 4 mg Q8H PRN Administration NAUSEA AND VOMITING Oxycodone/Acetaminophen 1 tab 02/05/22 08:17 02/06/22 08:57 Oxycodone-Apap 5-325 Mg Tablet PO 1 tab Q4H PRN Administration MODERATE PAIN Tamsulosin HCl 0.4 mg 02/05/22 09:00 02/06/22 08:57 Tamsulosin 0.4 Mg Capsule PO 0.4 mg DAILY JENAE Administration PFSH Anesthesia Medical History (Updated 02/05/22 @ 08:44 by Jb Rinaldi MD) Bladder wall thickening Chronic anticoagulation COPD (chronic obstructive pulmonary disease) Cystitis cystica Elevated PSA History of recurrent UTI (urinary tract infection) Left ureteral calculus Oxygen dependent Pulmonary embolism Surgical History History of femoral hernia repair (05/16/21) Laparoscopic History of neck surgery History of surgery on wrist Family History Father , AT AGE 85 LUNG CANCER Cancer Mother , AT AGE 82 BREAST CANCER Cancer Social History Smoking and tobacco status: former smoker Alcohol intake: never Marital status: Current occupational status: retired Data Anesthesia Cardiac Studies: No Data to Display
[2022-02-06] MEDS: fentaNYL 50 mcg/mL INJ 2mL IVP (11:58)
[2022-02-06] MEDS: iohexol 300 mg/mL 50 mL Btl (OR ONLY) XX (12:44)
--- NOTE | 2022-02-06 13:34 | PC.CHAP ---
Pastoral Care Encounter/Spiritual Assessment Type of Contact [] Declined lead warehouse associate visit [] Patient/Family/Request visit [] Outpatient visit [] Follow-up visit [] Physician referral [] Code/Alert [x] Routine visit [] Staff referral [] Actively dying [] Patient sleeping [] Family support [] [] Out of room [] Palliative care [] [] Receiving care in room [] Pre-surgical visit [] Trauma [] Long length of stay [] ICU visit [] Other: Relational/Emotional Strength x[] Patient feels connected with others/family/visitors/staff [] Distress [] Loneliness/isolation [] Abandonment Spirituality of Patient [x] Person of Amabr [x] Attends Quaker of their Ambar [] Believes in Prayer [] Reads Bible or Jehovah'S Witness materials [] There are Spiritual issues to be addressed Machine Assembler Supervisor Interventions [x] Prayer [x] Active listening [x] Non-anxious presence [] Spiritual/emotional support [] Crisis/trauma care [] Spiritual counseling [] Bereavement support [] Provided bereavement packet [] Provided Bible/devotional materials [] Provided toy/stuffed animal, coloring book to patient or family member [] Provided Communion [] Anointing/[place] [] Salvation [x] Completed spiritual assessment [] Other: Impact on Illness or Injury [] Angry [] Fearful [] Anxious [] Often cries [] Exhaustion [] Unable to work [] Unable to attend spiritism [] Unable to walk/stand [] Unable to read [] Unable to drive [] Unable to eat/drink [] Unable to sleep [] Unable to be with family [] Patient intubated [] Other: Summary Tnime spent with patient 10
[2022-02-06 13:37] LABS: Basophils % 0.3 %; Eosinophils % 0.2 %; Hematocrit 38.2 % (42.0-52.0); Hemoglobin 12.4 g/dL (11.7-16.6); Lymphocytes # 1.5 10^3/uL (0.8-4.8); Lymphocytes % 14.6 %; Mean Corpuscular HGB Conc 32.5 g/dL (30.0-36.0); Mean Corpuscular Hemoglobin 30.3 pg (28.0-34.0); Mean Corpuscular Volume 93.4 fl (80-94); Mean Platelet Volume 8.7 fL (7.4-10.4); Monocytes % 9.5 %; Neutrophils % 75.1 %; Nucleated Red Blood Cells % 0 %; Platelet Count 195 10^3/cmm (130-400); Red Blood Count 4.09 10^6/uL (4.1-5.3); White Blood Count 10.4 10^3/uL (4.0-10.0)
--- NOTE | 2022-02-06 13:40 | SUR.PHASEI ---
1330 PT TO PACU 5 PT AWAKE ALERT ORIENTED X 3 PT DENIES PAIN AND NAUSEA, MONITOR ST TO SR WITH OCC UNIFOCAL PVC NOTED IV TO RT WRIST #20 WITH NS 300M AT KVO RATE PER GRAVITY. ID BRACELET TO RT WRIST PT ID'D WITH 2 IDENTIFIERS, ABDOMEN SOFT PT WITH BILAT SCDS ON AND PT HAS FREQUENT NON PRODUCTIVE COUGH. 1340 PT MORE ALERT HOB AT 30 DEGREES, MONITOR NOW WITH NO PVCS NOTED RATE STILL UPPER 90'S-110'S. PT DENIES PAIN AND NAUSEA, WARM BLANKETS TO PT. PT ASKING IF HIS DAUGHTER ARRIVED.
--- NOTE | 2022-02-06 13:45 | SUR.PHASEI ---
PT ALERT AND COUGHING ONLY RARELY NOW, MONITOR UNCHANGED. WILL CALL REPORT TO FLOOR.
[2022-02-06 13:55] LABS: Anion Gap 13.5 (5-19); Blood Urea Nitrogen 14 mg/dL (8-23); Calcium 8.2 mg/dL (8.5-10.5); Carbon Dioxide 25 mmol/L (22-29); Chloride 100 mmol/L (98-107); Glomerular Filtration Rate 133.2 mL/min (90-130); Glucose 117 mg/dL (65-115); Osmolality Calculated 282 mOsm/kg (285-295); Potassium 3.5 mmol/L (3.5-5.1); Sodium 135 mmol/L (136-145)
[2022-02-06 13:56] LABS: Creatinine Clr Calc Pharmacy 80.1714
--- NOTE | 2022-02-06 14:05 | SUR.PHASEI ---
PT TO ROOM 250 PT UP AND WALKED TO BED, PT WALKED WITHOUT ASSISTANCE, STRONGLY, PT ON 2LNC NO PROBLEMS NOTED PT REQUESTS ICE CHIPS ,WANTED TO SEE DAUGHTER WHO HAD TO LEAVE JUST BEFORE OUT ARRIVAL. HANDOFF AT BEDSIDE WITH CHANG
[2022-02-06] MEDS: morphine 4 mg/mL SDV 1 mL 2 MG IVP (15:37)
--- NOTE | 2022-02-06 19:52 | ANE.PACU2 ---
Inpatient post-anesthesia follow up: Airway intact: Yes Vital signs: Temperature 97.8 F Pulse Rate 100 Respiratory Rate 16 Blood Pressure 120/78 Pulse Oximetry 95 Oxygen Delivery Me thod Nasal Cannula Oxygen Flow Rate 2 Fraction of Inspir ed Oxygen Hydration adequate: Yes Nausea and vomiting: No Pain level: 2 Mental status: Baseline
[2022-02-06] MEDS: sodium chlor 0.45% +KCl 20 mEq 20 MEQ/1,000 ML BAG 50 MEQ IV (20:08)
[2022-02-07 04:00] VITALS: BP 154/68; PULSE 56; RESP 16; TEMP 36.6; O2SAT 95
[2022-02-07] MEDS: ondansetron 2 mg/ML SDV 2 mL 4 MG IVP (05:23)
[2022-02-07] MEDS: ketorolac 30 mg/mL INJ 15 MG IVP (05:23)
--- NOTE | 2022-02-07 06:29 | PM.DCS ---
Discharge Providers Date of Admission: 02/05/22 08:27 Date of Discharge: February 07, 2022 Attending Provider at Admission: Jb Panchal MD Attending Provider at Discharge: Jb Panchal MD Consults: None Primary Care Provider: Emiliano Arriaga Diagnoses at Discharge Discharge Diagnosis (1) Left ureteral calculus: Details from hospital stay: Treated endoscopically with laser lithotripsy and stent placement. Status: Resolved (2) Left flank pain: Details from hospital stay: Secondary to left distal ureteral stone Status: Resolved (3) BPH loc w urin obs/LUTS: Details from hospital stay: Chronic obstructive voiding symptoms. Placed on TAMSULOSIN Status: Acute (4) Elevated PSA: Details from hospital stay: Following as outpatient Status: Acute (5) Slow urinary stream: Status: Acute (6) History of recurrent UTI (urinary tract infection): Status: Acute (7) History of pulmonary embolism: Status: Acute (8) Chronic anticoagulation: Status: Acute (9) Oxygen dependent: Status: Acute Reason for Visit Reason for Visit: Ureteral Calculus with refractory pain Brief History: Dudley is a 72-year-old white male who is evaluated [place] emergency department for severe left renal colicky symptoms beginning less than 24 hours prior. No prior symptoms like these. Denies any fever or chills. No evidence of UTI. CT scan demonstrated a large approximately 1.5 cm left distal ureteral stone with obstructive changes. He was transferred to [facility] for direct admission for treatment and evaluation of the stone. He did have a history of recurrent UTIs but there is no concern for obstructive pyelonephritis. Hospital Course Hospital Course He was admitted on Sunday the for evaluation of the above problems. Films were reviewed and findings dictated at [place] were agreed with. On 02/06/2022 he underwent cystoscopy, left retrograde ureteropyelogram, ureteroscopy, laser lithotripsy and stent. Because of his other comorbidities, specifically COPD and oxygen dependency, he was observed overnight and did well and was discharged on postoperative day #1 in stable condition. Physical Exam Const: COMMON NORMALS: no acute distress, alert and well nourished GENERAL APPEARANCE: well kempt and well developed ORIENTATION/CONSCIOUSNESS: not confused Neck/C-Spine: OTHER: Good range of motion Resp: COMMON NORMALS: normal respiratory effort EFFORT & INSPECTION: Yes able to speak in complete sentences, No labored and No Actively coughing OTHER: O2 per nasal cannula. GI: OTHER: Soft, no tenderness, no masses or organomegaly appreciated. Neuro: SENSORIUM/ORIENTATION: Yes alert OTHER: No focal deficits. Psych: COMMON NORMALS: mental status grossly normal APPEARANCE: Yes grossly normal and Yes well kempt ATTITUDE: Yes calm and Yes engaged Discharge Data Studies Completed and Pending Completed Studies During Hospitalization Category Date Time Status XR KUB [id number] Routine Exams 02/05/22 05:47 Completed Pending at discharge Category Date Time Status Stone Analysis Routine Lab 02/06/22 13:14 Ordered Pathology: Surgical [PTH] Routine Pth 02/06/22 13:25 Received Radiology Impressions KUB X-Ray 02/05/22 05:47 IMPRESSION: Two adjacent 5 mm calculi projects at the left ureterovesical junction. C-Arm Fluoroscopy 02/06/22 11:54 IMPRESSION: Images obtained for intraoperative purposes. Laboratory Results WBC 10.4 10^3/uL (4.0-10.0) H 02/06/22 13:22 RBC 4.09 10^6/uL (4.1-5.3) L 02/06/22 13:22 Hgb 12.4 g/dL (11.7-16.6) 02/06/22 13:22 Hct 38.2 % (42.0-52.0) L 02/06/22 13:22 MCV 93.4 fl (80-94) 02/06/22 13:22 MCH 30.3 pg (28.0-34.0) 02/06/22 13:22 MCHC 32.5 g/dL (30.0-36.0) 02/06/22 13:22 RDW 13.0 % (12.1-15.1) 02/06/22 13:22 Plt Count 195 10^3/cmm (130-400) 02/06/22 13:22 MPV 8.7 fL (7.4-10.4) 02/06/22 13:22 Neut % (Auto) 75.1 % 02/06/22 13:22 Lymph % (Auto) 14.6 % 02/06/22 13:22 Ransom % (Auto) 9.5 % 02/06/22 13:22 Eos % (Auto) 0.2 % 02/06/22 13:22 Baso % (Auto) 0.3 % 02/06/22 13:22 Neut # (Auto) 7.80 10^3/uL (1.8-7.7) H 02/06/22 13:22 Lymph # (Auto) 1.5 10^3/uL (0.8-4.8) 02/06/22 13:22 Ransom # (Auto) 1.0 10^3/uL (0.2-0.9) H 02/06/22 13:22 Eos # (Auto) 0.0 10^3/uL (0.0-0.8) 02/06/22 13:22 Baso # (Auto) 0.0 10^3/uL (0.0-0.1) 02/06/22 13:22 Nucleated RBC % (auto) 0 % 02/06/22 13:22 Nucleated RBCs # 0.0 /100WBC 02/06/22 13:22 Sodium 135 mmol/L (136-145) L 02/06/22 13:22 Potassium 3.5 mmol/L (3.5-5.1) 02/06/22 13:22 Chloride 100 mmol/L (98-107) 02/06/22 13:22 Carbon Dioxide 25 mmol/L (22-29) 02/06/22 13:22 Anion Gap 13.5 (5-19) 02/06/22 13:22 BUN 14 mg/dL (8-23) 02/06/22 13:22 Creatinine 0.6 mg/dL (0.7-1.2) L 02/06/22 13:22 GFR Calculation 133.2 mL/min (90-130) H 02/06/22 13:22 Glucose 117 mg/dL (65-115) H 02/06/22 13:22 Calculated Osmolality 282 mOsm/kg (285-295) L 02/06/22 13:22 Calcium 8.2 mg/dL (8.5-10.5) L 02/06/22 13:22 Procedures Performed Cystoscopy, LEFT: Retrograde, ureteroscopy, laser, stent Vitals Last Vital Signs Temp 97.8 F 02/07/22 04:00 Pulse 56 L 02/07/22 04:00 Resp 16 02/07/22 04:00 BP 154/68 02/07/22 04:00 Pulse Ox 95 02/07/22 04:00 O2 Del Method 02/06/22 20:09 O2 Flow Rate 2 02/06/22 20:09 Discharge Plan Discharge Patient Disposition: Home Condition: Stable Prescriptions: New hydrocodone-acetaminophen 5-325 mg tablet 1 tab PO Q8H PRN (Reason: pain) Qty: 12 0RF tamsulosin 0.4 mg capsule 0.4 mg PO DAILY Qty: 90 3RF Continued THC CBD DROPS 1 tab PO DAILY cetirizine [Zyrtec] 10 mg tablet 10 mg PO DAILY simvastatin 40 mg tablet 40 mg PO BEDTIME warfarin 5 mg tablet See Rx Instructions .ROUTE .COMPLEX Hold Instructions: Resume on 05/19/21. Rx Instructions: 6 mg orally DAILY - 5MG ON TUESDAYS & THURSDAYS mirtazapine 45 mg tablet 45 mg PO BEDTIME ondansetron HCl [Zofran] 4 mg tablet 4 mg PO Q6H PRN (Reason: nausea and vomiting) Qty: 20 0RF Discontinued ciprofloxacin HCl 500 mg tablet 500 mg PO BID Qty: 60 1RF Rx Instructions: For Chronic Cystitis Must have PT/INR checked regularly to confirm appropriate anticoagulation. Discharge Orders: Discharge Order (Routine); Ordered 02/07/22 Ordered By: Jb Panchal Referrals: Jb Panchal MD [Physician] - 02/13/22 (K[facility] first Cystoscopy, stent removal DR PANCHAL OFFICE WILL CALL WITH APPOINTMENT AND TIME) Discharge Diet: Usual diet Discharge Activity: Increase activity as tolerated Patient Instructions: Hydrocodone/Acetaminophen (By mouth), Tamsulosin (By mouth), Cystoscopy (GEN), Opioid Safety, Post Anesthesia Care Activity Restrictions/Additional Instructions: 1. The stent will create urgency, frequency, left flank pain with voiding at times. The symptoms will resolve once the stent is removed. We will plan on a clinic follow-up in approximately 1 week for cystoscopy and stent removal. 2. A prescription for pain medicine has been ordered. It was sent to [facility] in [place]. 3. Xrob-zrc-orsposg Azo Standard can be helpful for burning with urination. It is not necessary to take unless you have. 4. Resume your normal warfarin dosage at home 5. Hold on antibiotics for now Discharge Attestations Time Spent in Discharge Care*: greater than 30 min Quality Metrics Clinical Quality Measures [ No reported AMI, CVA or VTE this stay] Coding Level of Care Code Acute Chg FW DC note Exam Expanded Problem Focused Diagnoses Left ureteral calculus N20.1 Left flank pain R10.9 BPH loc w urin obs/LUTS N40.1 Elevated PSA R97.20 Slow urinary stream R39.198 History of recurrent UTI (urinary tract infection) Z87.440 History of pulmonary embolism Z86.711 Chronic anticoagulation Z79.01 Oxygen dependent Z99.81
[2022-02-07 08:00] VITALS: BP 183/113; PULSE 101; RESP 3; TEMP 36.8; O2SAT 93
[2022-02-07 09:29] VITALS: BP 183/113; PULSE 101; RESP 3; TEMP 36.8; O2SAT 93
[2022-02-13 13:24] LABS: Stone Source LEFT DISTAL URETER
== END 2022-02-07 09:29 | disposition home or self-care (01) | DRG 660 ==
PROVIDERS: Anesthesiology; Admitting Provider Urology; PCP Family Medicine; Visit Provider Urology
PROC: 0TJB8ZZ Inspection of Bladder, Via Natural or Artificial Opening Endoscopic (ICD-10-PCS; CPT 52000; principal; 2022-02-06 10:40)
PROC: 0T778DZ Dilation of Left Ureter with Intraluminal Device, Via Natural or Artificial Opening Endoscopic (ICD-10-PCS; CPT 74420; 2022-02-06 10:40)
PROC: 0T778DZ Dilation of Left Ureter with Intraluminal Device, Via Natural or Artificial Opening Endoscopic (ICD-10-PCS; 2022-02-06 10:40)
PROC: 0T778DZ Dilation of Left Ureter with Intraluminal Device, Via Natural or Artificial Opening Endoscopic (ICD-10-PCS; CPT 50605; 2022-02-06 10:40)
DX: N13.2 Hydronephrosis with renal and ureteral calculous obstruction (principal); N13.8 Other obstructive and reflux uropathy; N40.1 Benign prostatic hyperplasia with lower urinary tract symptoms; R39.198 Other difficulties with micturition; R97.20 Elevated prostate specific antigen [PSA]; J44.9 Chronic obstructive pulmonary disease, unspecified; Z87.440 Personal history of urinary (tract) infections; Z86.711 Personal history of pulmonary embolism; Z79.01 Long term (current) use of anticoagulants; Z99.81 Dependence on supplemental oxygen; Z87.891 Personal history of nicotine dependence
CPT/HCPCS: 74018; 76000; 80048; 82365; 85025; 88300; 90471; 90662; 90732; C2625; G0379; J1100; J1885; J2270; J2405; J2704; J3010; J3490; J7030

== ENCOUNTER 2022-02-13 13:11 | Outpatient (CLI) | payer MEDICARE, OTHER, SELFPAY ==
--- NOTE | 2022-02-13 13:26 | XR_ITS ---
WS: [id number] KUB, AP view, 02/13/2022 Clinical Data: STONES Comparison: None. Findings: No abnormal intraabdominal masses or calcifications are seen. There is no dilatated small bowel or ev idence of obstruction. There is a left ureteral stent in good position. The distal left ureteral calcifications are not pres ent. There is a large amount of air in the upper abdomen. XR/XR KUB [id number] Impression: Left ureteral stent.
== END 2022-02-13 13:12 | disposition home or self-care (01) ==
LOC: RAD 13:17
PROVIDERS: PCP Family Medicine; Visit Provider Urology
DX: N20.9 Urinary calculus, unspecified (principal); Z96.0 Presence of urogenital implants
CPT/HCPCS: 52310; 74018

== ENCOUNTER → 2022-06-13 09:20 | Outpatient (BNVA) | payer MEDICARE, OTHER, SELFPAY | PROVIDERS: PCP Family Medicine; Visit Provider Podiatrist Foot & Ankle Surgery | DX: I73.9 Peripheral vascular disease, unspecified (principal); G62.9 Polyneuropathy, unspecified; L60.3 Nail dystrophy; L90.9 Atrophic disorder of skin, unspecified; M21.41 Flat foot [pes planus] (acquired), right foot; M21.42 Flat foot [pes planus] (acquired), left foot | CPT/HCPCS: 11721; 99204 ==

== ENCOUNTER → 2022-09-19 13:25 | Outpatient (BNVA) | payer MEDICARE, OTHER, SELFPAY | PROVIDERS: PCP Family Medicine; Visit Provider Podiatrist Foot & Ankle Surgery | DX: I73.9 Peripheral vascular disease, unspecified (principal); L60.8 Other nail disorders; G62.9 Polyneuropathy, unspecified; L60.3 Nail dystrophy; L90.9 Atrophic disorder of skin, unspecified; M21.41 Flat foot [pes planus] (acquired), right foot; M21.42 Flat foot [pes planus] (acquired), left foot; Z99.81 Dependence on supplemental oxygen | CPT/HCPCS: 11721 ==

== ENCOUNTER → 2022-11-21 14:25 | Outpatient (BNVA) | payer MEDICARE, OTHER, SELFPAY | PROVIDERS: PCP Family Medicine; Visit Provider Podiatrist Foot & Ankle Surgery | DX: G62.9 Polyneuropathy, unspecified; I73.9 Peripheral vascular disease, unspecified; L60.3 Nail dystrophy; L90.9 Atrophic disorder of skin, unspecified; M21.41 Flat foot [pes planus] (acquired), right foot; M21.42 Flat foot [pes planus] (acquired), left foot | CPT/HCPCS: 11721 ==

== ENCOUNTER → 2023-02-14 15:11 | Outpatient (BNVA) | payer MEDICARE, OTHER, SELFPAY | PROVIDERS: PCP Family Medicine; Visit Provider Podiatrist Foot & Ankle Surgery | DX: M21.41 Flat foot [pes planus] (acquired), right foot (principal); M21.42 Flat foot [pes planus] (acquired), left foot; G62.9 Polyneuropathy, unspecified; I73.9 Peripheral vascular disease, unspecified; L60.3 Nail dystrophy | CPT/HCPCS: 11721 ==

== ENCOUNTER → 2023-05-30 09:53 | Outpatient (BNVA) | payer MEDICARE, OTHER, SELFPAY | PROVIDERS: PCP Family Medicine; Visit Provider Podiatrist Foot & Ankle Surgery | DX: G62.9 Polyneuropathy, unspecified (principal); I73.9 Peripheral vascular disease, unspecified; L60.3 Nail dystrophy; Z79.01 Long term (current) use of anticoagulants | CPT/HCPCS: 11721 ==

== ENCOUNTER → 2023-08-14 09:15 | Outpatient (BNVA) | payer MEDICARE, OTHER, SELFPAY | PROVIDERS: PCP Family Medicine; Visit Provider Podiatrist Foot & Ankle Surgery | DX: G62.9 Polyneuropathy, unspecified (principal); I73.9 Peripheral vascular disease, unspecified; L60.3 Nail dystrophy; Z79.01 Long term (current) use of anticoagulants | CPT/HCPCS: 11721 ==

== ENCOUNTER → 2023-11-14 13:38 | Outpatient (BNVA) | payer MEDICARE, OTHER, SELFPAY | PROVIDERS: PCP Family Medicine; Visit Provider Podiatrist Foot & Ankle Surgery | DX: G62.9 Polyneuropathy, unspecified (principal); I73.9 Peripheral vascular disease, unspecified; L60.3 Nail dystrophy; Z79.01 Long term (current) use of anticoagulants | CPT/HCPCS: 11721 ==

== ENCOUNTER → 2024-02-13 14:15 | Outpatient (BNVA) | payer MEDICARE, OTHER, SELFPAY | PROVIDERS: PCP Family Medicine; Visit Provider Podiatrist Foot & Ankle Surgery | DX: G62.9 Polyneuropathy, unspecified (principal); I73.9 Peripheral vascular disease, unspecified; L60.3 Nail dystrophy; Z79.01 Long term (current) use of anticoagulants | CPT/HCPCS: 11721 ==

== ENCOUNTER → 2024-05-14 12:28 | Outpatient (BNVA) | payer MEDICARE, OTHER, SELFPAY | PROVIDERS: PCP Family Medicine; Visit Provider Podiatrist Foot & Ankle Surgery | DX: I73.9 Peripheral vascular disease, unspecified (principal); Z79.01 Long term (current) use of anticoagulants; G62.9 Polyneuropathy, unspecified; L60.3 Nail dystrophy | CPT/HCPCS: 11721 ==

== ENCOUNTER → 2025-01-08 12:39 | Outpatient (BNVA) | payer MEDICARE, OTHER, SELFPAY | PROVIDERS: PCP Family Medicine; Visit Provider Internal Medicine Cardiovascular Disease | DX: R07.9 Chest pain, unspecified (principal); R00.1 Bradycardia, unspecified | CPT/HCPCS: 93005 ==

== ENCOUNTER → 2025-02-09 09:16 | Outpatient (BNVA) | payer MEDICARE, OTHER, SELFPAY | PROVIDERS: PCP Family Medicine; Visit Provider Student in an Organized Health Care Education/Training Program | DX: K80.50 Calculus of bile duct without cholangitis or cholecystitis without obstruction (principal) | CPT/HCPCS: 99203 ==

== ENCOUNTER 2025-02-23 09:31 | Outpatient (CLI) | payer MEDICARE, OTHER, SELFPAY ==
--- NOTE | 2025-02-23 10:00 | US_ITS ---
WS: [id number] RIGHT UPPER QUADRANT ULTRASOUND HISTORY: biliary colic COMPARISON: 01/25/2024 Liver: 15.1 cm in length. Normal size liver and echogenicity. No bile duct dilatation or mass. Portal Vein: Normal hepatopetal flow with monophasic waveform. Gallbladder: Normally distended gallbladder with stones. No pericholecystic fluid. No gallbladder wall thickening. CBD: 0.3 cm Pancreas: Completely obscured by bowel gas. Right kidney: 10.1 cm in length. Normal size and echogenicity. No hydronephrosis or mass. Aorta and IVC: Unremarkable abdominal aorta and IVC. No ascites. US/US gall bladder [id number] IMPRESSION: 1. Cholelithiasis without acute cholecystitis. 2. Unremarkable liver. 3. No hepatobiliary duct dilatation.
== END 2025-02-23 09:32 | disposition home or self-care (01) ==
LOC: RAD 09:32
PROVIDERS: PCP Family Medicine; Visit Provider Student in an Organized Health Care Education/Training Program
DX: K80.50 Calculus of bile duct without cholangitis or cholecystitis without obstruction (principal); K80.20 Calculus of gallbladder without cholecystitis without obstruction
CPT/HCPCS: 76705

== ENCOUNTER → 2025-04-09 09:40 | Outpatient (BNVA) | payer MEDICARE, OTHER, SELFPAY | PROVIDERS: PCP Family Medicine; Visit Provider Nurse Practitioner Family | DX: I48.91 Unspecified atrial fibrillation (principal); J44.9 Chronic obstructive pulmonary disease, unspecified; Z79.01 Long term (current) use of anticoagulants; Z99.81 Dependence on supplemental oxygen; Z87.891 Personal history of nicotine dependence; Z86.711 Personal history of pulmonary embolism | CPT/HCPCS: 93005; 99214 ==